=== PATIENT | female | born 2005 | race Two or more races ===

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

== ENCOUNTER 2024-05-21 07:43 | Emergency (ER) | payer OTHER ==
[~2024-05-21] VITALS: Ht 149.9 cm; Wt 60.6 kg
[~2024-05-21 07:43] MED LIST: NAPR-746 PO
[2024-05-21 08:15] VITALS: BP 146/82; PULSE 88; RESP 18; TEMP 99.7; O2SAT 98
[2024-05-21] MEDS ORDERED: CEPH500C PO (08:21)
[2024-05-21] MEDS ORDERED: IBUP-1454 PO (08:21)
[2024-05-22] MEDS ORDERED: BACDST PO (23:40)
== END 2024-05-21 08:27 | disposition home or self-care (01) ==
LOC: ER 07:43
DX: L05.91 Pilonidal cyst without abscess (principal)

== ENCOUNTER 2024-05-22 15:29 | Emergency (ER) | payer OTHER ==
[~2024-05-22] VITALS: Ht 152.4 cm; Wt 73.0 kg
[~2024-05-22 15:29] MED LIST changes: +CEPH500C PO; +IBUP-1454 PO
[2024-05-22 20:00] VITALS: BP 98/50; RESP 18; TEMP 98.9; O2SAT 95
[2024-05-22 20:16] VITALS: PULSE 127
[2024-05-22] MEDS: HYDROcodone-ACET 5/325MG TAB PO ONE (23:00)
[2024-05-22] MEDS ORDERED: BACDST PO (23:40)
[2024-05-22] MEDS: KETOROLAC TROMETH 60MG/2ML VIAL IM ONE (23:41)
== END 2024-05-23 00:30 | disposition home or self-care (01) ==
LOC: ER 15:29
DX: L05.01 Pilonidal cyst with abscess (principal); Z79.1 Long term (current) use of non-steroidal anti-inflammatories (NSAID); Z79.899 Other long term (current) drug therapy
CPT/HCPCS: 10080; 93005; 96372; 99283; J1885